=== PATIENT | male | born 1940 | race Caucasian/White ===

== ENCOUNTER 2024-01-07 16:44 | Emergency (ER) | payer MEDICARE, SELFPAY ==
[2024-01-07] VITALS (7 sets, daily range): BP systolic 163–209; BP diastolic 70–137; PULSE 78–85; RESP 14–20; TEMP 36.7; O2SAT 95–98
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
--- NOTE | 2024-01-07 16:48 | ECG_ITS ---
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 Measurements Intervals [place] Rate: 79 P: 71 LA: 183 QRS: -1 QRSD: 90 T: 60 QT: 371 QTc: 425 Interpretive Statements SINUS RHYTHM POSSIBLE RIGHT VENTRICULAR CONDUCTION DELAY [RSR (QR) IN V1/V2] SEPTAL MYOCARDIAL INFARCTION , OF INDETERMINATE AGE [40+ ms Q WAVE IN V1/V2] No previous ECG available for comparison Electronically Signed On 01-08-2024 11:11:28 CDT by Smooth Moon M.D. [email or web address] [facility] of [email or web address].[id number]
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
[2024-01-07 17:21] LABS: Basophils # 0.1 10^3/uL (0.0-0.1); Basophils % 1.2 %; Eosinophils # 0.2 10^3/uL (0.0-0.8); Eosinophils % 1.6 %; Hematocrit 43.4 % (37-53); Lymphocytes # 1.4 10^3/uL (0.8-4.8); Mean Corpuscular HGB Conc 33.9 g/dL (30-55); Mean Corpuscular Volume 94.6 fl (82-101); Monocytes % 10.2 %; Neutrophils # 7.34 10^3/uL (1.8-7.7); Neutrophils % 72.6 %; Nucleated Red Blood Cells % 0 %; Platelet Count 250 10^3/cmm (157-399); Red Blood Count 4.59 10^6/uL (3.85-5.65); Red Cell Distribution Width 12.1 % (12.1-15.1); White Blood Count 10.11 10^3/uL (3.29-11.43)
[2024-01-07] MEDS: hyDRALAzine 20 mg/mL INJ 1 mL 10 MG IVP (17:54)
== END 2024-01-07 18:52 | disposition home or self-care (01) ==
PROVIDERS: Emergency Provider Emergency Medicine
DX: Z04.1 Encounter for examination and observation following transport accident (principal); R55 Syncope and collapse; V49.9XXA Car occupant (driver) (passenger) injured in unspecified traffic accident, initial encounter
CPT/HCPCS: 70450; 71045; 85025; 93005; 96374; 99285; J0360